=== PATIENT | female | born 1955 ===

== ENCOUNTER 2017-12-15 07:45 | Outpatient (CLI) | payer OTHER | END 2017-12-15 07:55 | disposition home or self-care (01) | LOC: TOM 07:45 | DX: R19.7 Diarrhea, unspecified (principal) ==

== ENCOUNTER 2025-01-30 08:30 | Emergency (ER) | payer OTHER ==
[~2025-01-30] VITALS: Ht 149.9 cm; Wt 53.1 kg
[2025-01-30] MEDS ORDERED: ZESTRIL20 MG PO (08:36)
[2025-01-30] MEDS ORDERED: KETOROLAC TROMETHAMINE 30 MG VIAL IV ONE (10:00)
[2025-01-30] MEDS ORDERED: ONDANSETRON HCL 2 MG/ML VIAL IV ONE (10:00)
[2025-01-30 10:34] LABS: HEMATOCRIT 47.8 % (36.0-45.00); HEMOGLOBIN 16.4 g/dL (12.0-15.00); MEAN CELL VOLUME 91.9 fL (80.00-100.00); MEAN CORPUSCULAR HEMOGLOBIN 31.6 pg (27.00-32.0); MEAN CORPUSCULAR HGB CONC 34.3 g/dl (32.0-36.0); PLATELET COUNT 216 K/uL (150-450); RED CELL DISTRIBUTION WIDTH 13.1 % (11.5-14.5)
[2025-01-30 11:13] LABS: ALBUMIN 4.3 gm/dL (3.4-5.0); BILIRUBIN TOTAL 0.61 mg/dL (0.3-1.2); BILIRUBIN,CONJUGATED 0.12 mg/dL (0.0-0.2); BILIRUBIN,UNCONJUGATED 0.49 mg/dL (0.0-0.6); CREATININE SERUM 0.79 mg/dL (0.55-1.02); GFR 72.59; GLOBULINA 4.4 G/DL (2.4-3.5); POTASSIUM 3.84 mEq/L (3.5-5.1); TOTAL PROTEIN 8.7 gm/dL (6.4-8.2)
[2025-01-30 12:02] LABS: URINE APPEARANCE Clear; URINE BILIRRUBIN Negative (NEGATIVE); URINE BLOOD Negative; URINE COLOR Yellow; URINE GLUCOSE Negative (NEGATIVE); URINE KETONE Negative (NEGATIVE); URINE LEUKOCYTE Negative; URINE NITRATE Negative; URINE PROTEIN Negative (NEGATIVE); URINE UROBILINOGEN 0.2 E.U./dl
[2025-01-30 12:20] LABS: URINE BACTERIA 52.6 uL (0.0-1933); URINE EPITHELIAL CELLS 6.3 uL (0.0-38.8); URINE RBC 3.9 uL (0.0-20.8); URINE WBC 3.6 uL (0.0-23.2)
[2025-01-30 12:50] LABS: URINE CAST 0.14 uL (0.0-1.40)
[2025-01-30] MEDS ORDERED: HYOSCYAMINE SULFATE 0.125 MG TAB.SUBL SL ONE (15:45)
== END 2025-01-30 17:46 | disposition home or self-care (01) ==
LOC: ER 08:30
PROVIDERS: Emergency Medicine
DX: R10.11 Right upper quadrant pain (principal); K85.90 Acute pancreatitis without necrosis or infection, unspecified; I10 Essential (primary) hypertension